=== PATIENT | male | born 2000 | race African-American/Black ===

== ENCOUNTER 2020-05-09 22:48 | Emergency (ER) | payer SELFPAY ==
[~2020-05-09] VITALS: Ht 182.9 cm; Wt 77.3 kg
[2020-05-09 22:54] VITALS: BP 134/58
[2020-05-09] MEDS ORDERED: TRAM-48 PO (23:37)
[2020-05-09] MEDS ORDERED: CYCL10TA2 PO (23:37)
--- NOTE | 2020-05-09 23:38 | PHYS DOC ---
General Adult EDM: Chief Complaint: SHOULDER INJURY HPI: HPI: Patient is a 19 year old male presents with left upper back/shoulder and neck pain. Sunday patient was playing basketball and knocked on his back. Denies LOC. Patient with ROM neck, and left arm. Patient has not been taking any OTC medications for discomfort. Review of Systems: Review of Systems: Review of systems: Constitutional symptoms- No fever, no chills. Eyes- No Discharge, No Visual Loss Respiratory symptoms- No shortness of breath, No wheezing, No Dyspnea on Exertion Cardiovascular Systems; No chest pain, No Palpitations, No syncope Gastrointestinal symptoms: NO abdominal pain, no nausea, no vomiting or diarrhea. Genitourinary symptoms: No dysuria. Musculoskeletal symptoms: Positive back positive extremity positive neck pain NEUROLOGICAL Symptoms: No headache, no generalized weakness; No focal Weakness Heart Score: C/O Chest Pain: N/A Risk Factors: Risk Factors: DM, Current or recent (<one month) smoker, HTN, HLP, family history of CAD, obesity. Risk Scores: Score 0 - 3: 2.5% MACE over next 6 weeks - Discharge Home Score 4 - 6: 20.3% MACE over next 6 weeks - Admit for Clinical Observation Score 7 - 10: 72.7% MACE over next 6 weeks - Early Invasive Strategies Physical Exam: PE: General: alert, no acute distress. Skin: warm, dry and intact. Head:: Normocephalic, atraumatic. Neck: Trachea midline. No C-spine midline tenderness step-off or deformity Eyes: EOMI, Normal conjunctiva, No drainage CARDIOVASCULAR: Regular rate and rhythm RESPIRATORY: No respiratory distress Back: Full range of motion. MUSCULOSKELETAL: Decreased range of motion flexion extension neck decreased range of motion left upper extremity GASTROINTESTINAL: Abdomen soft without rebound or guarding. NEUROLOGICAL: Alert and noted to person, place and time. No neurological deficits observed Psychiatric: Cooperative. Normal judgment EKG: EKG: [] Radiology/Procedures: Radiology/Procedures: [] Course & Med Decision Making: Course & Med Decision Making Pertinent Labs and Imaging studies reviewed. (See chart for details) [] Dragon Disclaimer: Al Disclaimer: This electronic medical record was generated, in whole or in part, using a voice recognition dictation system. Departure Departure Impression: Primary Impression: Back pain Additional Impression: Cervical muscle strain Disposition: 01 DC HOME SELF CARE/HOMELESS Condition: STABLE Patient Instructions: Cervical Strain and Sprain with Rehab-SportsMed Scripts Cyclobenzaprine Hcl (CYCLOBENZAPRINE HCL) 10 Mg Tablet 1 TAB PO TID, #14 TAB Prov: LAMINE BELL DO 05/09/20 Tramadol Hcl (ULTRAM) 50 Mg Tablet 50 MG PO Q4HRS PRN for PAIN for 10 Days, #14 TAB 0 Refills Prov: LAMINE BELL DO 05/09/20 LAMINE BELL DO May 09, 2020 23:37
== END 2020-05-09 23:44 | disposition home or self-care (01) ==
LOC: ER 22:48
DX: S16.1XXA Strain of muscle, fascia and tendon at neck level, initial encounter (principal); M25.512 Pain in left shoulder; M54.9 Dorsalgia, unspecified; W21.05XA Struck by basketball, initial encounter; Y93.89 Activity, other specified; Y92.89 Other specified places as the place of occurrence of the external cause; Y99.8 Other external cause status
CPT/HCPCS: 99283

== ENCOUNTER 2021-02-04 22:23 | Emergency (ER) | payer SELFPAY ==
[~2021-02-04] VITALS: Ht 177.8 cm; Wt 76.8 kg
[~2021-02-04 22:23] MED LIST: CYCL10TA19 PO; TRAM-48 PO
[2021-02-05 00:01] LABS: BILIRUBIN,URINE NEGATIVE (NEG); CLARITY,URINE CLEAR; COLOR,URINE YELLOW; NITRITE,URINE NEGATIVE (NEG); PROTEIN,URINE NEGATIVE (NEG-TRACE); UROBILINOGEN,URINE 0.2 mg/dL (0.2 mg/dL)
[2021-02-05 00:35] LABS: BACTERIA,URINE 0 /HPF (0-FEW); RBC,URINE OCC /HPF (0-2); WBC,URINE 20-40 /HPF (0-4)
--- NOTE | 2021-02-05 00:37 | PHYS DOC ---
Past Medical History Past Medical History: No Pertinent History (YORDAN MENDEZ APRN) Past Surgical History: No Surgical History (YORDAN MENDEZ APRN) Smoking Status: Never Smoker Alcohol Use: Occasionally (YORDAN MENDEZ APRN) General Adult EDM: Chief Complaint: ABDOMINAL PAIN HPI: HPI: Patient is a 20-year-old male that presents today with left lower flank abdominal pain for the last 2 days. Patient states that he has been having episodes of pain and swelling on the left lower flank abdomen area, he says it comes and goes he says after he eats it does get worse. He denies any past medical history of any bowel disorder such as Crohn's or ulcerative colitis or irritable bowel syndrome. Patient does state he has had a substantial weight loss over the last year due to him trying to lose weight. Patient does state he has had a low-grade fever as well with this, he denies chest pain or shortness of air or cough with this. Patient denies dysuria or hematuria. (YORDAN MENDEZ APRN) Review of Systems: Review of Systems: Constitutional: Denies fever or chills. [] Eyes: Denies change in visual acuity. [] HENT: Denies nasal congestion or sore throat. [] Respiratory: Denies cough or shortness of breath. [] Cardiovascular: Denies chest pain or edema. [] GI: abdominal pain; denies nausea, vomiting, bloody stools or diarrhea. [] : denies hematuria or dysuria. [] Musculoskeletal: Denies back pain or joint pain. [] Integument: Denies rash. [] Neurologic: Denies headache, focal weakness or sensory changes. [] Endocrine: Denies polyuria or polydipsia. [] Lymphatic: Denies swollen glands. [] Psychiatric: Denies depression or anxiety. [] (YORDAN MENDEZ APRN) Heart Score: C/O Chest Pain: N/A Risk Factors: Risk Factors: DM, Current or recent (<one month) smoker, HTN, HLP, family history of CAD, obesity. Risk Scores: Score 0 - 3: 2.5% MACE over next 6 weeks - Discharge Home Score 4 - 6: 20.3% MACE over next 6 weeks - Admit for Clinical Observation Score 7 - 10: 72.7% MACE over next 6 weeks - Early Invasive Strategies (YORDAN MENDEZ HATCHERY WORKER) Current Medications: Current Medications Medications (Trade) Dose Ordered Sig/[facility] Start Time Stop Time Status Last Admin Dose Admin Fentanyl Citrate (Fentanyl 2ml Vial) 50 mcg 1X ONCE 02/05/21 00:30 02/05/21 00:31 UNV Sodium Chloride 1,000 ml @ 999 mls/hr 1X ONCE 02/05/21 00:30 02/05/21 01:30 UNV (YORDAN MENDEZ HATCHERY WORKER) Physical Exam: PE: Constitutional: Well developed, well nourished, no acute distress, non-toxic appearance. [] HENT: Normocephalic, atraumatic, bilateral external ears normal, oropharynx moist, no oral exudates, nose normal. [] Eyes: PERRLA, EOMI, conjunctiva normal, no discharge. [] Neck: Normal range of motion, no tenderness, supple, no stridor. [] Cardiovascular:Heart rate regular rhythm, no murmur [] Lungs & Thorax: Bilateral breath sounds clear to auscultation [] Abdomen: Bowel sounds normal, soft, tendernes noted with palpation over the left lower flank/abdomen area. No lacerations, abrasions, contusions or ecchymosis noted, no masses, no pulsatile masses. [] Skin: Warm, dry, no erythema, no rash. [] Back: No tenderness, no CVA tenderness. [] Extremities: No tenderness, no cyanosis, no clubbing, ROM intact, no edema. [] Neurologic: Alert and oriented X 3, normal motor function, normal sensory func tion, no focal deficits noted. [] Psychologic: Affect normal, judgement normal, mood normal. [] (YORDAN MENDEZ HATCHERY WORKER) PE: Constitutional: Well developed, well nourished, no acute distress, non-toxic appearance HENT: Normocephalic, atraumatic Eyes: Conjunctiva normal, no discharge Neck: Normal range of motion, no tenderness, supple Lungs & Thorax: No respiratory distress, equal chest rise and fall Abdomen: Soft, LUQ tenderness, no guarding/rebound tenderness/distention Skin: Warm, dry, no erythema, no rash Back: No tenderness, left CVA tenderness Extremities: No tenderness, ROM intact, no edema Neurologic: Alert and oriented X 3, normal motor function, normal sensory function, no focal deficits noted Psychologic: Affect normal, judgment normal (ELINA ACEVEDO DO) Current Patient Data: Labs: Laboratory Tests Test 02/04/21 23:19 Urine Collection Type Unknown Urine Color Yellow Urine Clarity Clear Urine pH 7.0 Urine Specific [place] 1.015 Urine Protein Negative mg/dL Urine Glucose (UA) Negative mg/dL Urine Ketones (Stick) Negative mg/dL Urine Blood Negative Urine Nitrite Negative Urine Bilirubin Negative Urine Urobilinogen Dipstick 0.2 mg/dL Urine Leukocyte Esterase Small Urine RBC Occ /HPF Urine WBC 20-40 /HPF Urine Squamous Epithelial Cells Occ /LPF Urine Bacteria 0 /HPF Urine Mucus Marked /LPF Current Medications Medications (Trade) Dose Ordered Sig/Eduardo Route PRN Reason Start Time Stop Time Status Last Admin Dose Admin Sodium Chloride 1,000 ml @ 999 mls/hr 1X ONCE IV 02/05/21 01:00 02/05/21 02:00 02/05/21 00:58 Fentanyl Citrate (Fentanyl 2ml Vial) 50 mcg 1X ONCE IVP 02/05/21 01:00 02/05/21 01:01 DC 02/05/21 00:57 Ondansetron HCl (Zofran) 4 mg 1X ONCE IVP 02/05/21 01:00 02/05/21 01:01 DC 02/05/21 00:56 Vital Signs: Did review all labs with the RN. Vital Signs Date Time Temp Pulse Resp B/P (MAP) Pulse Ox O2 Delivery O2 Flow Rate FiO2 02/05/21 00:57 18 100 Room Air (YORDAN MENDEZ APRN) EKG: EKG: [] (YORDAN MENDEZ HATCHERY WORKER) Radiology/Procedures: Radiology/Procedures: [] (YORDAN MENDEZ APRN) Radiology/Procedures: PROCEDURE: CT ABD PELV W/ IV CONTRST ONLY CT abdomen and pelvis with contrast PQRS statement: CT scans at this facility use dose reduction including either automated exposure control, iterative reconstructions, and /or weight based radiation dosing via mA and kV modification when appropriate to reduce radiation dose to as low as reasonably achievable. HISTORY: Left abdominal pain. Left flank pain. Contrast: 75 mL Omnipaque 240 intravenous contrast. Abdomen findings: Chronic L4 spondylolysis defects bilaterally. Liver, gallbladder, pancreas, spleen, adrenal glands and kidneys are unremarkable. No obstruction or inflammation of the GI tract. The appendix is normal. Vessels normal. No abdominal fluid or adenopathy. Lung bases unremarkable. Pelvis findings: Bladder, prostate, rectum and bones are unremarkable. No pelvic fluid or adenopathy. IMPRESSION: No acute process. The appendix is normal. Bilateral chronic L4 spondylolysis defects. Electronically signed by: Marcello Ramirez MD (02/05/2021 1:48 AM) [facility] (ELINA ACEVEDO DO) Course & Med Decision Making: Course & Med Decision Making Pertinent Labs and Imaging studies reviewed. (See chart for details) [address] Acevedo to review remaining results. (YORDAN MENDEZ APRN) Course & Med Decision Making 0100-signout received from Yordan ZAMORA for patient with left-sided flank pain. Patient pending CT imaging at time of signout. Patient seen and evaluated myself. Labs reviewed. UA with concern for possible infection. CT abdomen/pelvis without acute finding. Empiric antibiotic initiated. Patient stable for discharge with outpatient follow-up with PCP. Discussed findings and plan with patient and girlfriend, who acknowledge understanding and agreement. (ELINA ACEVEDO DO) Dragon Disclaimer: Dragraoul Disclaimer: This electronic medical record was generated, in whole or in part, using a voice recognition dictation system. (YORDAN MENDEZ APRN) Departure Departure Impression: Primary Impression: Flank pain, acute Disposition: HOME / SELF CARE / HOMELESS Condition: STABLE Referrals: NO PCP (PCP) Patient Instructions: Flank Pain, [id number], Pyelonephritis, Adult, [id number] Scripts Naproxen (NAPROXEN) 375 Mg Tablet 375 MG PO TID PRN PRN for PAIN, #20 TAB Prov: ELINA ACEVEDO DO 02/05/21 Cephalexin (KEFLEX) 500 Mg Capsule 1 CAP PO TID for 7 Days, #21 CAP Prov: ELINA ACEVEDO DO 02/05/21 Orphenadrine Citrate (ORPHENADRINE CITRATE) 100 Mg Tablet.er 100 MG PO BID PRN for MUSCLE PAIN, #14 TAB Prov: ELINA ACEVEDO DO 1/1/22 Attending Signature Attending Signature I have personally interviewed and examined the patient. All charts, labs, and imaging studies were reviewed. I agree with the PA/TIP CEMENTER's findings, exam, and plan. (ELINA ACEVEDO DO) YORDAN MENDEZ APRN Feb 05, 2021 00:37 ELINA ACEVEDO DO Feb 05, 2021 02:39
[2021-02-05] MEDS ORDERED: ONDANSETRON PF 4 MG/2 ML VIAL. IVP ONE (01:00)
[2021-02-05] MEDS ORDERED: fentaNYL PF VIAL 100 MCG/2 ML VIAL IVP ONE (01:00)
[2021-02-05] MEDS ORDERED: IV NORMAL SALINE 1000ML BAG 1,000 ML IV ONE (01:00)
[2021-02-05 01:17] LABS: BASO # 0.1 x10^3/uL (0.0-0.2); BASO % 1 % (0-3); EOS # 0.3 x10^3/uL (0.0-0.7); EOS % 2 % (0-3); HEMATOCRIT 39.3 % (39.0-53.0); HEMOGLOBIN 13.1 g/dL (13.0-17.5); LYMPH % 28 % (24-48); MEAN CORPUSCULAR HEMOGLOBIN 31 pg (25-35); MEAN CORPUSCULAR HGB CONC 33 g/dL (31-37); MEAN CORPUSCULAR VOLUME 94 fL (79-100); MONO # 0.9 x10^3/uL (0.0-1.1); MONO % 8 % (0-9); NEUT # 6.8 x10^3/uL (1.8-7.7); NEUT % 61 % (31-73); PLATELET COUNT 236 x10^3/uL (140-400); RED CELL DISTRIBUTION WIDTH 14.2 % (11.5-14.5)
[2021-02-05 01:22] LABS: CREATININE 1.1 mg/dL (0.7-1.3); GFR 101.3; POTASSIUM 4.1 mmol/L (3.5-5.1)
[2021-02-05 01:28] LABS: ALBUMIN 3.9 g/dL (3.4-5.0); ALBUMIN/GLOBULIN RATIO 1.1 (1.0-1.7); TOTAL BILIRUBIN 0.3 mg/dL (0.2-1.0); TOTAL PROTEIN 7.5 g/dL (6.4-8.2)
[2021-02-05] MEDS ORDERED: CONTRAST GIVEN. MC PRN (01:30)
--- NOTE | 2021-02-05 01:51 | RAD ---
CT abdomen and pelvis with contrast PQRS statement: CT scans at this facility use dose reduction including either automated exposure cont rol, iterative reconstructions, and /or weight based radiation dosing via mA and kV modification when appropriate to reduce radiation dose to as low as reasonably achievable. HISTORY: Left abdominal pain. Left flank pain. Contrast: 75 mL Omnipaque 240 intravenous contrast. Abdomen findings: Chronic L4 spondylolysis defects bilaterally. Liver, gallbladder, pancreas, spleen, adrenal glands and kidneys are unremarkable. No obstruction or inflammation of the GI tract. The juan r endix is normal. Vessels normal. No abdominal fluid or adenopathy. Lung bases unremarkable. Pelvis findings: Bladder, prostate, rectum and bones are unremarkable. No pelvic fluid or adenopathy. IMPRESSION: No acute process. The appendix is normal. Bilateral chronic L4 spondylolysis defects. Electronically signed by: Marcello Ramirez MD (02/05/2021 1:48 AM) [facility]
[2021-02-05] MEDS ORDERED: IOHEXOL 300 MG/ML 100ML VIAL. IV ONE (02:00)
[2021-02-05] MEDS ORDERED: ORPH100T PO (02:37)
[2021-02-05] MEDS ORDERED: NAPR-695 PO (02:37)
[2021-02-05] MEDS ORDERED: CEPH500C PO (02:37)
[2021-02-05] MEDS ORDERED: cefTRIAXone IV Push 1 GM VIAL. IVP ONE (03:00)
[2021-02-05 03:18] VITALS: BP 127/64
== END 2021-02-05 03:32 | disposition home or self-care (01) ==
LOC: ER 22:23
DX: R10.32 Left lower quadrant pain (principal); M47.812 Spondylosis without myelopathy or radiculopathy, cervical region
CPT/HCPCS: 36415; 74177; 80053; 81001; 83690; 85025; 87086; 87491; 87591; 96361; 96374; 96375; 99285; J0696; J2405; J3010; J7030; Q9967

== ENCOUNTER 2021-04-23 23:20 | Emergency (ER) | payer SELFPAY ==
[~2021-04-23] VITALS: Ht 175.3 cm; Wt 81.6 kg
[~2021-04-23 23:20] MED LIST changes: +CEPH500C PO; +NAPR-695 PO; +ORPH100T PO
--- NOTE | 2021-04-23 23:58 | PHYS DOC ---
Past Medical History Past Medical History: No Pertinent History Past Surgical History: No Surgical History Smoking Status: Never Smoker Alcohol Use: Occasionally General Adult EDM: Chief Complaint: KNEE INJURY HPI: HPI: Patient is a 20 year old male who presents the ED today complaining of 6 out of 10 sharp intermittent left knee and left ankle pain, symptoms began today while playing basketball. He states his left knee twisted medially and his knee disl ocated and was reduced by straightening the leg. Patient states the pain is worse on the knee on ambulation. Review of Systems: Review of Systems: Constitutional: Denies fever or chills. [] Musculoskeletal: Reports left knee and left ankle pain Integument: Denies rash. [] Neurologic: Denies headache, focal weakness or sensory changes. [] Psychiatric: Denies depression or anxiety. [] Heart Score: C/O Chest Pain: N/A Risk Factors: Risk Factors: DM, Current or recent (<one month) smoker, HTN, HLP, family history of CAD, obesity. Risk Scores: Score 0 - 3: 2.5% MACE over next 6 weeks - Discharge Home Score 4 - 6: 20.3% MACE over next 6 weeks - Admit for Clinical Observation Score 7 - 10: 72.7% MACE over next 6 weeks - Early Invasive Strategies Allergies: Allergies: Allergies Coded Allergies Type Severity Reaction Last Updated Verified No Known Drug Allergies 04/23/21 No Physical Exam: PE: Constitutional: Well developed, well nourished, no acute distress, non-toxic appearance. []] Skin: Warm, dry, no erythema, no rash. [] Back: No tenderness, no CVA tenderness. [] Extremities: Left lower extremity with no obvious deformity, soft tissue swelling noted on the left medial knee. Tenderness on palpation of the left medial knee. Full active as well as passive range of motion to the left knee. Full active range of motion to the left ankle. Negative Nury sign, negative Danna sign, negative anterior drawer sign. +2 Neurologic: Alert and oriented X 3, normal motor function, normal sensory function, no focal deficits noted. [] Psychologic: Affect normal, judgement normal, mood normal. [] Current Patient Data: Vital Signs: Vital Signs Date Time Temp Pulse Resp B/P (MAP) Pulse Ox O2 Delivery O2 Flow Rate FiO2 3/19/22 23:30 97.9 75 18 138/66 (90) 99 Room Air 97.9 EKG: EKG: [] Radiology/Procedures: Radiology/Procedures: []PROCEDURE: ANKLE LEFT 3V XR EXAM OF ANKLE_LEFT 3V, XR LT TIBIA + FIBULA History: Pain Comparison: None. Findings: Osseous mineralization is normal. No acute fracture or dislocaton. The ankle mortise and talar dome are intact. Tiny corticated ossific body at the anterior tibiotalar joint likely represents sequela of old injury. No focal soft tissue swelling. Impression: 1. No acute osseous abnormality of the left tib-fib and left ankle. Electronically signed by: Deni Mejía MD (04/24/2021 1:30 AM) [facility] DICTATED and SIGNED BY: DENI MEJÍA MD DATE: 04/24/21 0128 PROCEDURE: KNEE LEFT 4V Exam: XR KNEE _4 VIEWS WITH PATELLA_LT History: Pain. Injury in basketball. Comparison: None. Findings: Osseous mineralization is normal. No acute fracture or dislocaton. No significant degenerative changes. Small effusion. Soft tissues are unremarkable. Impression: 1. Small left knee effusion without acute osseous abnormality. Electronically signed by: Deni Mejía MD (04/24/2021 12:02 AM) [facility] DICTATED and SIGNED BY: DENI MEJÍA MD DATE: 04/24/21 0002 Course & Med Decision Making: Course & Med Decision Making Pertinent Labs and Imaging studies reviewed. (See chart for details) This a 20-year-old male patient presented to the ED today with left knee and left ankle pain that began today while playing basketball. Left knee, left tib-fib, and negative for any acute findings, left ankle x-rays noted for small joint effusion are negative for any acute findings, knee immobil izer and Marcellus bandage applied to the left lower extremity. Ice elevation encouraged, Ortho for follow-up as outpatient. OTC pain relievers Al Disclaimer: Al Disclaimer: This electronic medical record was generated, in whole or in part, using a voice recognition dictation system. Departure Departure Impression: Primary Impression: Left knee sprain Qualified Codes: S83.92XA - Sprain of unspecified site of left knee, initial encounter Additional Impression: Left ankle sprain Qualified Codes: S93.402A - Sprain of unspecified ligament of left ankle, initial encounter Disposition: HOME / SELF CARE / HOMELESS Condition: STABLE Referrals: NO PCP (PCP) RUBIO CORONEL II, MD follow up in one week Patient Instructions: Ankle Sprain, Knee Sprain Additional Instructions: You were evaluated in the emergency room, your left knee x-rays, left tib-fib x- rays, left ankle x-rays are negative for any acute findings, you have small amount of fluid in your left knee causing the swelling. This is not unusual. It will clear in a few days. Try to wrap the knee in the Marcellus bandage and wear the immobilizer as tolerated. You can take Tylenol/ Motrin for pain. Follow-up with orthopedic doctor provided in 1 week SONJA SURESH APRN Apr 23, 2021 23:58
--- NOTE | 2021-04-24 00:05 | RAD ---
Exam: XR KNEE _4 VIEWS WITH PATELLA_LT History: Pain. Injury in basketball. Comparison: None. Findings: Osseous mineralization is normal. No acute fracture or dislocaton. No significant degenerative change s. Small effusion. Soft tissues are unremarkable. Impression: 1. Small left knee effusion without acute osseous abnormality. Electronically signed by: Deni Mejía MD (04/24/2021 12:02 AM) [facility]
--- NOTE | 2021-04-24 01:32 | RAD ---
XR EXAM OF ANKLE_LEFT 3V, XR LT TIBIA + FIBULA History: Pain Comparison: None. Findings: Osseous mineralization is normal. No acute fracture or dislocaton. The ankle mortise and talar dome a re intact. Tiny corticated ossific body at the anterior tibiotalar joint likely represents sequela of old injury. No focal soft tissue swelling. Impression: 1. No acute osseous abnormality of the left tib-fib and left ankle. Electronically signed by: Deni Mejía MD (04/24/2021 1:30 AM) [facility]
[2021-04-24 04:34] VITALS: BP 120/59
== END 2021-04-24 02:50 | disposition home or self-care (01) ==
LOC: ER 23:20
DX: S83.92XA Sprain of unspecified site of left knee, initial encounter (principal); S93.402A Sprain of unspecified ligament of left ankle, initial encounter; X50.9XXA Other and unspecified overexertion or strenuous movements or postures, initial encounter; Y93.89 Activity, other specified; Y92.89 Other specified places as the place of occurrence of the external cause; Y99.8 Other external cause status
CPT/HCPCS: 29505; 73564; 73590; 73610; 99285-25